=== PATIENT | female | born 1995 | race Caucasian/White ===

== ENCOUNTER 2017-02-20 00:07 | Emergency (ER) | payer OTHER ==
[2017-02-20] MEDS ORDERED: OXYCODONE/ACETAMINOPHEN 5/325 MG TABLET ONE (02:00)
[2017-02-20] MEDS ORDERED: IBUPROFEN 800 MG TABLET ONE (02:00)
--- NOTE | 2017-02-20 08:13 | RAD ---
LUMBAR SPINE ROUTINE 2 3 VWS COMPARISON: None. HISTORY: The patient fell on her tailbone while bowling today. Low back pain. FINDINGS: Views: Lumbar spine AP and lateral. AP L5-S1 spot. Vertebral alignment: Normal. Vertebral bodies: No fracture. Normal mineralization. Intervertebral discs: Normal. Pedicles: Normal. Facet joints and posterior arches: Normal. Sacroiliac joints: Normal. Soft tissues: Normal. IMPRESSION: 1. Normal study.
--- NOTE | 2017-02-20 08:14 | RAD ---
SACRUM AND COCCYX COMPARISON: None. HISTORY: The patient fell on her tailbone while bowling today. Coccyx pain. FINDINGS: Views: AP sacrum, AP coccyx, lateral. Bones: Normal. Joints: Normal. Soft tissues: Normal. IMPRESSION: 1. Normal study.
== END 2017-02-20 04:00 | disposition home or self-care (01) ==
LOC: ED 00:07
DX: S30.0XXA Contusion of lower back and pelvis, initial encounter (principal); W01.198A Fall on same level from slipping, tripping and stumbling with subsequent striking against other object, initial encounter; Y93.54 Activity, bowling; Y92.39 Other specified sports and athletic area as the place of occurrence of the external cause
CPT/HCPCS: 72100; 72220; 99283 ×2; A9270 ×2